=== PATIENT | male | born 1950 | race Caucasian/White ===

== ENCOUNTER → 2022-12-02 17:34 | Outpatient (CLI) | payer MEDICARE, SELFPAY ==
--- NOTE | ~2022-12-02 | XR_ITS ---
EXAMINATION: XR chest 2V Exam Date/Time: 12/02/2022 17:45 CDT HISTORY: Bronchitis Comparison: None. RESULT: Lines, tubes, and devices: None. Lungs and pleura: Hemidiaphragm flattening. Mild scattered reticulonodular opacities. Cardiomediastinal silhouette: Stable. Other: No acute osseous or upper abdominal finding. IMPRESSION: Pulmonary opacities may represent respiratory bronchiolitis in the appropriate clinical context. Mild emphysematous change. Reviewed, dictated and finalized at location K.
== END ==
PROVIDERS: PCP Family Medicine; Visit Provider Family Medicine
DX: J40 Bronchitis, not specified as acute or chronic (principal); R91.8 Other nonspecific abnormal finding of lung field
CPT/HCPCS: 71046

== ENCOUNTER 2023-06-30 15:18 | Outpatient (CLI) | payer MEDICARE, SELFPAY ==
[2023-07-05 18:36] LABS: PSA, Free 0.36 ng/mL; PSA, Total 1.5 ng/mL (<=4.0)
== END 2023-06-30 15:19 | disposition home or self-care (01) ==
LOC: ANHLAB 15:25
PROVIDERS: PCP Family Medicine
DX: R97.20 Elevated prostate specific antigen [PSA] (principal)
CPT/HCPCS: 36415; 84153; 84154

== ENCOUNTER 2023-08-24 08:30 | Outpatient (RCR) | payer MEDICARE, SELFPAY ==
[2023-05-20 12:16] VITALS: PULSE 77
== END 2023-08-24 17:00 | disposition home or self-care (01) ==
LOC: ANHCPREHAB 08:30
PROVIDERS: PCP Family Medicine; Visit Provider Internal Medicine Cardiovascular Disease
DX: Z95.2 Presence of prosthetic heart valve (principal)
CPT/HCPCS: 36415; 84153; 84154; 93798

== ENCOUNTER 2023-09-16 06:59 | Outpatient (CLI) | payer MEDICARE, SELFPAY ==
[2023-09-16 08:07] LABS: Basophils Percent Auto 0.6 % (0.2-1.2); Eosinophils Absolute Auto 0.2 K/mm3 (0-0.3); Eosinophils Percent Auto 2.2 % (0-4.4); Hematocrit 46.5 % (42.0-52.0); Hemoglobin 15.3 g/dL (14.0-18.0); Immature Granulocyte Absolute 0.03 K/mm3 (0.00-0.031); Immature Granulocyte Percent A 0.4 % (0-0.5); Lymphocytes Absolute Auto 1.81 K/mm3 (0.9-3.2); Lymphocytes Percent Auto 26.7 % (18.3-44.2); Mean Corpuscular HGB Conc 32.9 g/dl (32-36); Mean Corpuscular Hemoglobin 30.2 pg (26-34); Mean Corpuscular Volume 91.9 fl (80-100); Mean Platelet Volume 10.5 fl (7.4-10.4); Monocytes Absolute Auto 0.6 K/mm3 (0.1-0.6); Neutrophils Absolute Auto 4.1 K/mm3 (1.3-6.7); Neutrophils Percent Auto 61.1 % (45.5-73.1); Platelet Count Result 230 k/mm3 (150-375); Red Blood Count 5.06 M/mm3 (4.6-6.20); Red Cell Distribution Width 13.8 % (11.5-14.5); White Blood Count 6.8 K/mm3 (4.5-10.0)
== END 2023-09-16 07:00 | disposition home or self-care (01) ==
LOC: ANHLAB 07:03
PROVIDERS: PCP Family Medicine; Visit Provider Internal Medicine Cardiovascular Disease
DX: E78.5 Hyperlipidemia, unspecified (principal); I48.0 Paroxysmal atrial fibrillation; Z79.01 Long term (current) use of anticoagulants; Z82.49 Family history of ischemic heart disease and other diseases of the circulatory system; Z95.3 Presence of xenogenic heart valve; Z95.828 Presence of other vascular implants and grafts
CPT/HCPCS: 36415; 85025

== ENCOUNTER 2023-12-02 11:43 | Outpatient (CLI) | payer MEDICARE, SELFPAY ==
--- NOTE | 2023-12-02 | ECG_ITS ---
Test Date: 2023-12-02 11:59:40 Measurements Intervals [place] Rate: 61 P: 38 WI: 156 QRS: 48 QRSD: 97 T: 68 QT: 414 QTc: 417 Interpretive Statements SINUS RHYTHM No previous ECG available for comparison Electronically Signed On 12-03-2023 15:50:24 CDT by Fuad Fulton M.D.
== END 2023-12-02 11:44 | disposition home or self-care (01) ==
LOC: ANHLAB 11:46
PROVIDERS: PCP Family Medicine; Visit Provider Family Medicine
DX: Z01.818 Encounter for other preprocedural examination (principal)
CPT/HCPCS: 93005

== ENCOUNTER 2024-01-09 10:34 | Outpatient (CLI) | payer MEDICARE, SELFPAY ==
--- NOTE | ~2024-01-09 | XR_ITS ---
XR abdomen/kub 1V 01/09/2024 11:05 INDICATION: History of kidney stones TECHNIQUE: KUB COMPARISON: None FINDINGS: Bowel gas pattern is normal. There is no evidence of free air, mass, organomegaly, ascites or obstruction. There are left renal stones. The bones appear intact. There are pelvic phleboliths. IMPRESSION: 1: Left nephrolithiasis. Reviewed, dictated and finalized at location B. IMPRESSION: 1: Left nephrolithiasis.
[2024-01-09 11:36] LABS: Prostate Specific Antigen 1.5 ng/mL (< OR = 4.0)
== END 2024-01-09 10:35 | disposition home or self-care (01) ==
PROVIDERS: PCP Family Medicine
DX: N40.0 Benign prostatic hyperplasia without lower urinary tract symptoms (principal); R39.12 Poor urinary stream; N20.0 Calculus of kidney
CPT/HCPCS: 36415; 74018; 84153

== ENCOUNTER 2024-08-07 14:29 | Outpatient (CLI) | payer MEDICARE, SELFPAY ==
--- OUTSIDE RECORDS SUMMARY | 2024-08-07 14:42 | XMS_ITS | Clinical Summary ---
Author Organization [facility] Address [address] [place] [address] Care Team Providers Care Spinning Supervisor Name Role Phone Brent Moreno MD Primary Care Provider +1- [phone] Source Comments [facility],non-owned Affiliates and Associated Physician Practices is amultiple site organization consisting of ambulatory clinics and hospital sitesin [place], [place], [place] and [place]. This disclosure is being madepursuant to the Care Everywhere program and may not contain all information available regarding this patient. Last updated 18.[facility] [employer] Social History Tobacco Use Types Packs/Day Years Used Date Smoking Tobacco: Never Assessed Sex and Gender Information Value Date Recorded Sex Assigned at Not on file Gender Identity Not on file Sexual Orientation Not on file Plan of Treatment Health Maintenance Due Date Last Done Comments COLOGUARD (AGES 45-75) - COL ON CA SCREENING 1950 COLON MONITORING 1950 COLONOSCOPY - COLON CA SCREENING 1949 CT COLONOGRAPHY - COLON CA SCREENING 1950 Colorectal Cancer Screening 1950 FIT - COLON CA SCREENING 1949 FLEX SIG - COLON CA SCREENING 1949 LIPID TESTING 1950 MEDICARE AWV 12 MONTHS 1950 HEPATITIS C SCREENING 01/12/1967 DTAP/TDAP/TD VACCINES (1 - Tdap) 01/17/1968 PNEUMOCOCCAL VACCINE 50+ (1 of 1 - PCV) 1999 ZOSTER VACCINE (1 of 2) 1999 Respiratory Syncytial Virus (RSV) Vaccine Pt: or over 60 yrs (1 - 1-dose 75+ series) 01/17/2024 COVID-19 VACCINE ( - 2023-2 5 season) 2024 INFLUENZA VACCINE (#1) 2024 DEPRESSION SCREENING 06/20/2024 HEPATITIS B VACCINE Aged Out No longe r eligible based on patient's age to complete this topic HIB VACCINE Aged Out No longer eligi ble based on patient's age to complete this topic HPV VACCINE Aged Out No longer eligi ble based on patient's age to complete this topic MENINGOCOCCAL (Group B) VACCINE Aged Out No longer eligible based on patient's age to complete this topic MENINGOCOCCAL VACCINE Aged Out No vanessa feliciano eligible based on patient's age to complete this topic Care Teams Spinning Supervisor Relationship Specialty Start Date End Date Brent Moreno MD [address] [facility], [id number] PCP - General 11/11/20
--- OUTSIDE RECORDS SUMMARY | 2024-08-07 14:42 | XMS_ITS | Referral Summary ---
Author Organization [facility] Address [address] [place] [address] Care Team Providers Care Head Bander And Liner Operator Name Role Phone Brent Moreno MD Primary Care Provider +1- [phone] Source Comments [facility],non-owned Affiliates and Associated Physician Practices is amultiple site organization consisting of ambulatory clinics and hospital sitesin [place], [place], [place] and [place]. This disclosure is being madepursuant to the Care Everywhere program and may not contain all information available regarding this patient. Last updated 18.[facility] [employer] Social History Tobacco Use Types Packs/Day Years Used Date Smoking Tobacco: Never Assessed Sex and Gender Information Value Date Recorded Sex Assigned at Not on file Gender Identity Not on file Sexual Orientation Not on file Plan of Treatment Not on file Care Teams Head Bander And Liner Operator Relationship Specialty Start Date End Date Brent Moreno MD [address] [facility], [id number] PCP - General 11/11/20
--- OUTSIDE RECORDS SUMMARY | 2024-08-07 14:42 | XMS_ITS | Clinical Summary ---
Author Organization [address] Address [address] [place] [id number] Care Team Providers Care Senior Product Marketing Manager Name Role Phone Brent Moreno MD Primary Care Provider +1- [phone] Allergies Active Allergy Reactions Criticality Noted Date Comments Amoxicillin Other (See comments) Low 01/24/2024 Amoxicillin-Pot Clavulanate Other (See comments) Medium 01/10/2024 Krvtrop-Tnp-Iag Reductase Inhibitors Mental status changes Low 01/24/2024 Medications PREVIDENT 5000 BOOSTER PLUS 1.1 % paste USE DAILY AT BEDTIME. SPIT BUT DO NOT RINSE WITH WATER AFTERWARDS 3 8 Active coenzyme Q10 100 mg capsule Take 1 capsule (100 mg total) by mouth daily Active amiodarone (PACERONE) 200 mg tablet Take 1 tablet (200 mg total) by mouth daily 4 Active Eliquis 5 mg tablet Take 1 tablet (5 mg total) by mouth 2 (two) times a day 4 Active cyanocobalamin (Vitamin B-12) 1,000 mcg tablet Take 1 tablet (1,000 mcg total) by mouth daily 9 Active cholecalciferol (VITAMIN D-3) 5,000 unit capsule Take 1 capsule (5,000 Units total) by mouth daily 9 Active Active Problems Problem Noted Date Diagnosed Date Hemorrhoids, complicated 01/10/2024 Anal discharge 01/10/2024 Grade III hemorrhoids 04/25/2018 Rectal bleeding 04/25/2018 Surgical History Surgery Date Site/Laterality Comments COLONOSCOPY 2012 INGUINAL HERNIA REPAIR LITHOTRIPSY Medical History Medical History Date Comments Kidney stone lithotrypsy Social History Tobacco Use Types Packs/Day Years Used Date Smoking Tobacco: Never Passive Smoke Exposure: Never Smokeless Tobacco: Never Tobacco Cessation:Counseling Given: Not Answered Alcohol Use Standard Drinks/Week Comments Yes 0 (1 standard drink = 0.6 oz pur e alcohol) social AUDIT-C Answer Date Recorded Q1: How often do you have a drink containing alc ohol? 2-3 times a week 01/10/2024 Q2: How many drinks containi ng alcohol do you have on a typical day when you are drinking? 1 or 2 01/10/2024 Frequency of Binge Drinking Not on file 12/19 Personal Safety Answer Date Recorded Getting School Help Needed Not on file 08/19 Sex and Gender Information Value Date Recorded Sex Assigned at Not on file Legal Sex Male 3:00 PM CDT Gender Identity Not on file Sexual Orientation Not on file Obstetrics History Last Filed Vital Signs Vital Sign Reading Time Taken Comments Blood Pressure 135/78 01/24/2024 9:45 AM CDT Pulse 93 01/24/2024 9:45 AM CDT Temperature 36.9 C (98.5 F) 01/24/2024 9:45 AM CDT Respiratory Rate 18 05/19/2018 11:2 5 AM PRODUCTION TEAM MEMBER Oxygen Saturation 96% 01/10/2024 3:52 PM CDT Inhaled Oxygen Concentration - - Weight 89.7 kg (197 lb 12.8 oz) 01/24/2024 9:45 AM CDT Height 177.8 cm (5' 10 ) 01/24/2024 9:45 AM CDT Body Mass Index 28.38 01/24/2024 9:45 AM CDT Plan of Treatment Health Maintenance Due Date Last Done Comments Depression Screening 1950 Fall Risk Assessment 1950 Hepatitis C Screening 1950 DTaP/Tdap/Td Vaccine (1 - Tdap) 01/17/1960 Hepatitis B Screening 1967 Pneumococcal vaccine 65+ (1 of 1 - PCV) 1999 Zoster Vaccine (1 of 2) 1999 Well Visit 65+ 2014 Covid-19 Vaccine (6 - 2023-2 5 season) 2024 05/06/2022, 01/29/2022, 06/05/2021, Additional history exists Influenza Vaccine (#1) 2024 06/03/2022 Colon Cancer Screening-Colonoscopy 05/19/2028 05/19/2018 Colon Cancer Screening-CT Colonography Discontinued 05/19/2018 Colon Cancer Screening-DNA Stool Discontinued 05/19/20 18 Colon Cancer Screening-FIT Discontinued 05/19/2018 Colon Cancer Screening-Sigmoidoscopy Discontinued 05/19/2018 Procedures Procedure Name Priority Date/Time Associated Diagnosis Comments COLONOSCOPY 05/19/2018 7:28 AM PRODUCTION TEAM MEMBER from Last 3 Months or Most Recently Relevant to Health Maintenance Results * COLONOSCOPY (05/19/2018 7:28 AM PRODUCTION TEAM MEMBER) Anatomical Region Laterality Modality Other Narrative Procedure Note Stuart Oro MD - 05/19/2018 7:28 AM CST ENDOSCOPY LAB Patient Name: Chapincito Johnson Procedure Date: 05/19/2018 7:28 AM Admit Type: Outpatient Room: [facility] Date of : 1950 Instrument Name: [id number] Gender: Male Note Status: Finalized Procedure: Colonoscopy Indications: High risk colon cancer surveillance: Personal historyof colonic polyps, Last colonoscopy 5 years ago Comorbidities No comorbidities Providers: Stuart Oro MD Referring MD: Brent Moreno MD Medicines: See the Anesthesia note for documentation of the administered medications Complications: No immediate complications. Estimated blood loss:None. Estimated Blood Loss: Estimated blood loss: none. Procedure: Pre-Anesthesia Assessment: - Prior to the procedure, a History and Physical was performed, and patient medications, allergies and sensitivities were reviewed. The patient's tolerance of previous anesthesia was reviewed. - The risks and benefits of the procedure and thesedation options and risks were discussed with the patient. All questions were answered and informed consent wasobtained. The benefits, risks and alternatives of the procedureand sedation were discussed and informed consent wasobtained. All questions were answered. Please refer to the signed informed consent document in the medical record. Thescope was passed under direct vision. The Colonoscope was introduced through the anus and advanced to the the terminal ileum, with identification of the appendiceal orifice and IC valve. The quality of the bowelpreparation was evaluated using the BBPS ([facility] Bowel Preparation Scale) with scores of: Right Colon = 3 (entire mucosaseen well with no residual staining, small fragments ofstool or opaque liquid), Transverse Colon = 2 (minor amountof residual staining, small fragments of stool and/oropaque liquid, but mucosa seen well) and Left Colon = 2 (minor amount of residual staining, small fragments of stool and/or opaque liquid, but mucosa seen well). The total BBPS score equals 7. The quality of the bowelpreparation was excellent. The bowel preparation used was SUPREP. Bowel prep was administered using a split dose. Findings: The digital rectal exam was normal. Pertinent negatives include no palpable rectal lesions. A few diverticula were found in the sigmoid colon. The exam was otherwise without abnormality on direct and retroflexion views. Impression: - Diverticulosis in the sigmoid colon. - The examination was otherwise normal on direct and retroflexion views. - No specimens collected. - Hemorrhoids. Recommendation: - Repeat colonoscopy in 5-10 years for surveillance. Electronically signed by Stuart Oro M.D. Stuart Oro MD 05/19/2018 10:14:07 AM Number of Addenda: 0 Note Initiated On: 05/19/2018 7:28 AM Stuart Oro MD ENDOSCOPY PROCEDURES Fin al Result from Last 3 Months or Most Recently Relevant to Health Maintenance Insurance MEDICARE [employer] MEDICARE [employer] Advance Directives For more information, please contact: [phone] * Full Code (Latest Code Status on File) Date Activated Date Inactivated Comments 05/19/2018 8:53 AM 05/19/2018 1:46 PM Care Teams Senior Product Marketing Manager Relationship Specialty Start Date End Date Brent Moreno MD [address] [place] [address] PCP - General Family Medicine 04/07/18
--- OUTSIDE RECORDS SUMMARY | 2024-08-07 14:42 | XMS_ITS | Encounter Summary ---
Author Organization [facility] Address [address] [facility] [place] [address] Care Team Providers Care Pasteurizer Name Role Phone Brent Moreno MD Primary Care Provider +1- [phone] Encounter Details Date Type Department Care Team (Late st Contact Info) Description 04/26/2022 Lab Requisition [facility] Derm[facility] Lab [address] [place] [address] Polo Acosta MD [address] [place] [id number] Social History Tobacco Use Types Packs/Day Years Used Date Smoking Tobacco: Never Assessed Sex and Gender Information Value Date Recorded Sex Assigned at Not on file Gender Identity Not on file Sexual Orientation Not on file documented as of this encounter Plan of Treatment Not on file documented as of this encounter Procedures Procedure Name Priority Date/Time Associated Diagnosis Comments DERMATOPATHOLOGY Routine 04/21/2022 12:0 0 AM CDT documented in this encounter Results * DERMATOPATHOLOGY (04/21/2022 12:00 AM CDT) Case Report Dermatopathology Report Case: [id number] Authorizing Provider: Polo Acosta MD Collected: 04/21/2022 12:00 AM Ordering Location: [facility] Received: 04/26/2022 11:26 AM Pathologist: Marcella Gonzalez MD Specimen: Skin, back 4:09 PM [facility] DERMATOPATHOLOGY [facility]ORAT[facility] Final Diagnosis Specimen A. 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 The specimen consists of a shave biopsy measuring 56c40w5 mm. Jar 0. 2 4:09 PM [facility] DERMATOPATHOLOGY [facility]OR[facility]ORY Microscopic Description Specimen A. SKIN, back: Sections show an acanthotic lesion composed of relatively uniform keratinocytes. There is hyperkeratosis and pseudo horn cysts. Pigment is present in the keratinocytes composing this tumor. 2 4:09 PM [facility] DERMATOPATHOLOGY [facility]OR[facility]ORY Disclaimer An external and internal positive and negative controls are appropriate for the histochemical, immunohistochemical and immunofluorescence stain(s) in this case (if any), except where stated explicitly. The performance characteristics of the stain(s) cited in this report were developed and its performance characteristic determined by the Dermatopathology Laboratory at [facility], directed by Dr. Margaret Gonzalez. These tests need not be, and therefore are not, approved by the [place] Food and Drug Administration. The tests are used for clinical purposes. Billing Codes Specimen Charges Stain Charges 99106 1 2 4:09 PM [facility] DERMATOPATHOLOGY [facility] Embedded Images 2 4:09 PM [facility] DERMATOPATHOLOGY [facility]ORY Pathology/Cytolog y TISSUE SPECIMEN FROM SKIN / Unknown 04/21/2022 04/26/2022 11:26 AM ACADEMIC PHYSICIAN Polo Acosta MD LAB - PATHOLOGY/CYTO LOGY ORDERABLES DERMATOPATHOLOGY LABORATORY [facility] - Department of Dermatology [facility] Medicine [facility] [facility] [place], [place] [id number] [place] [address] documented in this encounter Visit Diagnoses Not on filedocumented in this encounter Care Teams Pasteurizer Relationship Specialty Start Date End Date Brent Moreno MD [address] [facility], [id number] PCP - General 11/11/20 documented as of this encounter
--- OUTSIDE RECORDS SUMMARY | 2024-08-07 14:42 | XMS_ITS | Patient Health Summary ---
Author Organization [facility] Address [address] [facility] [place] [address] Care Team Providers Care Screen Tacker Name Role Phone Brent Moreno MD Primary Care Provider +1- [phone] Note from [facility],non-owned Affiliates and Associated Physician Practices is amultiple site organization consisting of ambulatory clinics and hospital sitesin [place], [place], [place] and [place]. This disclosure is being madepursuant to the Care Everywhere program and may not contain all information available regarding this patient. Last updated 18.[facility] Social History Tobacco Use Types Packs/Day Years Used Date Smoking Tobacco: Never Assessed Sex and Gender Information Value Date Recorded Sex Assigned at Not on file Gender Identity Not on file Sexual Orientation Not on file Procedures * DERMATOPATHOLOGY(Performed 04/21/2022) * ECHO COMPLETE(Performed 11/11/2020) Performed for Aortic valve stenosis, etiology of cardiac valve disease unspecified * DERMATOPATHOLOGY(Performed 08/15/2019) * DERMATOPATHOLOGY(Performed 02/27/2018) Results * DERMATOPATHOLOGY (04/21/2022 12:00 AM CDT) Only the most recent of3 resultswithin the time period is included. Case Report Dermatopathology Report Case: [id number] Authorizing Provider: Polo Acosta MD Collected: 04/21/2022 12:00 AM Ordering Location: [facility] D[facility] Lab Received: 04/26/2022 11:26 AM Pathologist: Marcella Gonzalez MD Specimen: Skin, back 4:09 PM [facility] Final Diagnosis Specimen A. SKIN, back: PIGMENTED SEBORRHEIC KERATOSIS, INFLAMED (L82.1) 2 4:09 PM [facility] Clinical History SK nevus R/O melanoma 2 4:09 PM [facility] Gross Description Specimen A: Received is one formalin filled container labeled with the patient's name and designated back. The specimen consists of a shave biopsy measuring 21v40t7 mm. Jar 0. 2 4:09 PM [facility] Microscopic Description Specimen A. SKIN, back: Sections show an acanthotic lesion composed of relatively uniform keratinocytes. There is hyperkeratosis and pseudo horn cysts. Pigment is present in the keratinocytes composing this tumor. 2 4:09 PM [facility] Disclaimer An external and internal positive and negative controls are appropriate for the histochemical, immunohistochemical and immunofluorescence stain(s) in this case (if any), except where stated explicitly. The performance characteristics of the stain(s) cited in this report were developed and its performance characteristic determined by the Dermatopathology Laboratory at [facility], directed by Dr. Margaret Gonzalez. These tests need not be, and therefore are not, approved by the [place] Food and Drug Administration. The tests are used for clinical purposes. Billing Codes Specimen Charges Stain Charges 37247 1 2 4:09 PM [facility] Embedded Images 2 4:09 PM [facility] Pathology/Cytolog y TISSUE SPECIMEN FROM SKIN / Unknown 04/21/2022 04/26/2022 11:26 AM SCALER Polo Acosta MD LAB - PATHOLOGY/CYTO LOGY ORDERABLES DERMATOPATHOLOGY LABORATORY [facility] - Department of Dermatology [address] [phone] * ECHO COMPLETE (11/11/2020 3:54 PM CDT) Anatomical Region Laterality Modality Chest Echo 11/11/2020 2:52 PM CDT Narrative Procedure Note Bessie Ross MD - 11/12/2020 Jaguar Edwards MD ECHOCARDIOGRAPHY RAD IANT Care Teams Screen Tacker Relationship Specialty Start Date End Date Brent Moreno MD [address] [facility], [id number] PCP - General 11/11/20
--- OUTSIDE RECORDS SUMMARY | 2024-08-07 14:42 | XMS_ITS | Data Portability ---
Author Organization [facility] Marks SI (11) Address [address] [facility] [address] [place] [address] Care Team Providers Care Neck Band Operator Name Role Phone FERNANDO MONTIEL Referring Provider [phone] Assessment Encounter Date Assessment Date Assessment LastModified by Organization Details LastModified Time 06/03/2016 06/03/2016 Patient is compliant with CPAP and he feels better. But his humidifier is not working now well and his mission is more than six years old. I will order and APAP with the pressure range of 6 to 10 since he has gained some weight. [email or web address] Not available 06/03/2016 12:22:01 Plan of Treatment Reminders Order Date Submit Date Provider Last Modified By Organization Details Last Modified Time Details Appointments None record ed. Lab None record ed. Referral None record ed. Procedures None record ed. Surgeries None record ed. Imaging None record ed. Medication Orders None record ed. Patient TargetsNo targets recorded. Patient InstructionsNo instructions recorded. Reason for Referral None Reported. Problems Name Problem SNOMED Code Status Onset Date Resolution Date Notes Provider Name and Address Organization Details Recorded Time Obstructive sleep apnea syndrome 44207876 Active 016 KING MARCOS MD, JAI, F.C.C.P. NPI [id number],[facility], [place], [address] [place] [address]/[facility] 6 12:05:18 Problem Notes None recorded. Procedures Surgical History Date Name Laterality Status Provider Name and Address Organization Details Recorded Time Fragmenting of kidney stone completed KING MARCOS MD, JAI, F.C.C.P. [address],[facility], [place], [address], [facility] 06/03/2016 12:08:05 Imaging Results None recorded. Procedure Notes None recorded. Medical Equipment None Reported. Allergies No known drug allergies Medications Name Sig Start Date Stop Date Status Note LastModified by Organization Details LastModified Time ciprofloxacin 0.3 % eye drops active Not Available Not Availa ble Not Available amoxicillin 875 mg-potassium clavulanate 125 mg tablet active Not Available Not Available No t Available Vitals Date Recorded Body height Body weight Body mass index (BMI) Oxygen saturation Oxygen saturation in Arterial blood by Pulse oximetry Heart rate Respiratory rate Systolic blood pressure Diastolic blood pressure Provider Name and Address Organization Details Last Updated DateTime 6 177.8 cm 05588.5 5 g 27.3 kg/m2 96 % 96 % 60 /min 16 /min 110 mm[Hg] 70 mm[Hg] KING MARCOS MD, DAB, F.C.C.P. I [id number] [phone] [facility] [place], [address], [facility] 6 12:20:06 Social History Question Answer Notes LastModified by Organizat ion Details LastModified Time Tobacco Smoking Status Never Smoker Not Available [facility] 04/04/2020 03:17:41 What Is Your Level Of Alcohol Consumption? Occasional [id number] Information not available 04/04/2020 What Is Your Level Of Caffeine Consumption? Moderate [id number] Information not available 04/04/2020 Marital Status mohit Campos n not available 06/03/2016 How Many Children Do You Have? 1 [id number] Information not available 04/04/2020 Sex: Unknown Functional Status None recorded. Mental Status None recorded. Family History Nothing Reported. Medical History Condition Response Gout N Emphysema N Congenital Heart Disease N COPD N Depression N Pneumonia N Lung Mass N Sinusitis N Obesity N Arthritis N Blood Clot N Acid Reflux (GERD) N Cancer N Stroke N Hospital Admission other than N Hypercholesterolemia N Kidney Disease N Anxiety N NSAID Use N Difficulty swallowing N Tuberculosis N AIDS/HIV N Nasal polyps N Asthma N Parasomnias N Hepatitis N Pulmonary Embolism N Thyroid Disease N Meniere's disease N Cystic Fibrosis N Chronic ear infections N Liver Disease N Allergies/Hayfever N Anemia N Multiple Sclerosis N Mental Illness N Diabetes N Seizures/Epilepsy N Diverticulitis N Sleep Apnea Y Bronchitis N Heart Disease N Hypertension N Osteoporosis N Past Encounters Encounter ID Performer Location Encounter Start Date Encounter Closed Date Diagnosis/Indication Diagnosis SNOMED-CT Code Diagnosis ICD10 Code Diagnosis Note [id number] KING MARCOS MD, Marilin VERGARAC.C.P. [facility] [address] [address] 06/03/2016 11:34:24 06/03/2016 13:20:26 Obstructive sleep apnea of adult 3831443511 103 G47.33 Health Concerns Section Related Observation LastModified by Organization Detai ls LastModified Time None Recorded Concern Status LastModified by Organization Details LastModified Time None Recorded Advance Directives Directive None Recorded Payers Encounter Date Sequence Insurance Name Policy Number Policy Larson Covered Member ID Larson Member ID Guarantor Name 06/03/2016 2 [employer] [place] Johnson [id number] [place] Johnson 06/03/2016 1 [place] Johnson [id number] [place] Johnson Notes Date Note Type Note Provider Name and Address Organization Details Recorded Time 06/03/2016 text/html CPAP f/upReporte d [email or web address].CPAPThe patient reports feeling better with CPAP; The patient reports no new medical problems.; No surgeries or hospitalizations reported since last visit.; The patient does not notice mask leaking.; Snoring is not observed when CPAP is used. KING MARCOS MD, Rupert VERGARA.C.C.P. [address] [address], [place], [address], [facility] 06/03/2016 12:22:20
--- OUTSIDE RECORDS SUMMARY | 2024-08-07 14:42 | XMS_ITS | Clinical Summary ---
Author Organization [facility] [address] [facility] Address [address] [place] [address] Care Team Providers Care Product Safety Administrator Name Role Phone Brent Moreno MD Primary Care Provider [phone]- [phone] Social History Tobacco Use Types Packs/Day Years Used Date Smoking Tobacco: Never Assessed Sex and Gender Information Value Date Recorded Sex Assigned at Not on file Legal Sex Male 5:48 PM CDT Gender Identity Not on file Sexual Orientation Not on file Plan of Treatment Health Maintenance Due Date Last Done Comments DTAP/TDAP/TD VACCINES (1 - Tdap) 01/17/1968 COLORECTAL SCREENING 1994 Colorectal Cancer Screening 1994 FIT-DNA Q 3 years 1994 FIT/FOBT Q 1 year 1994 Flex Sig/CT Colonography Q 5 years 1994 PNEUMOCOCCAL VACCINE 65+ YEARS (1 of 1 - PCV) 01/16/19 99 ZOSTER VACCINE (1 of 2) 1999 RSV VACCINE (60+ or ) (1 - 1-dose 75+ series) 01/17/2024 INFLUENZA VACCINE (#1) 2024 Insurance [id number] [id number] MEDICARE PART A AND B Care Teams Product Safety Administrator Relationship Specialty Start Date End Date Brent Moreno MD [address] [place] [address] PCP - General Family Practice 09/19/18
--- OUTSIDE RECORDS SUMMARY | 2024-08-07 14:42 | XMS_ITS | Data Portability ---
Author Organization [facility], Main Office Address [address] [facility] [address] [place] [address] Assessment No assessment recorded. Plan of Treatment Reminders Order Date Submit Date Provider Last Modified By Organization Details Last Modified Time Details Appointments ESTABLISH ED PATIENT 30 2024 10:00A M Dr. Acosta Not available Not available Not available Lab None recorded. Referral None recorded. Procedures biopsy, skin (PROC) 2019 020 [email or web address] Not available 08/15/2019 10:04:20 Surgeries None recorded. Imaging None recorded. Medication Orders None recorded. Patient TargetsNo targets recorded. Patient InstructionsNo instructions recorded. Reason for Referral None Reported. Results Created Date Observation Date Name Description Value Unit Range Abnormal Flag Note LastModifiedBy Organization Detail LastModifiedTime Result Notes None recorded. Problems Name Problem SNOMED Code Status Onset Date Resolution Date Notes Provider Name and Address Organization Details Recorded Time Seborrheic keratosis 541335444 Active 2021 Polo Acosta MD [address] [facility] [address], [place], [address], [facility] 2 13:31:45 Chronic effect of ultraviolet radiation on normal skin 245884162 Active 2021 Polo Acosta MD [address] [facility] [address], [place], [address], [facility] 2 13:32:01 Tinea corporis 85824902 Active 2023 Polo Acosta MD [address] [facility] [address], [place], [address], [facility] 4 15:44:26 Melanocytic nevus of trunk 426591419 Active 2023 Polo Acosta MD [address] [facility] [address], [place], [address], [facility] 4 15:25:59 Multiple actinic keratoses 027774979 Active 2023 Polo Acosta MD [address] [facility] [address], [place], [address], [facility] 4 15:26:05 Neoplasm of uncertain behavior of skin 24425329 Active 2019 Polo [facility]osta MD [address] [facility] [address] [place], [address], [facility] 0 10:04:09 Problem Notes None recorded. Procedures Surgical History Date Name Laterality Status Provider Name and Address Organization Details Recorded Time 08/15/2019 Shave Biopsy completed Polo Acosta MD [address] [facility] [address] [place], [address], [facility] 08/15/2019 10:03:44 Imaging Results None recorded. Procedure Notes None recorded. Medical Equipment None Reported. Allergies No known drug allergies Medications Name Sig Start Date Stop Date Status Note LastModified by Organization Details LastModified Time amoxicillin 500 mg capsule 07/12 completed Not Available Not Available Not Available doxycycline hyclate 100 mg capsule TAKE 1 CAPSULE BY MOUTH TWICE A DAY FOR 10 DAYS active Not Available Not Available No t Available clindamycin HCl 300 mg capsule active Not Available Not Available Not Available azithromyci n 250 mg tablet TAKE 2 TABLETS BY MOUTH TODAY, THEN TAKE 1 TABLET DAILY FOR 4 DAYS active Not Available Not Available No t Available amiodarone 200 mg tablet 07/12 completed Not Available Not Available Not Available prednisone 20 mg tablet TAKE 2 TABLETS BY MOUTH EVERY DAY X4 DAYS WITH FOOD *NO OTHER NSAIDS(AL MAYRA, IBUPROFEN ) 07/12 completed Not Available Not Available Not Available potassium chloride ER 10 mEq tablet,exte nded release active Not Available Not Available Not Available omeprazole 40 mg capsule,del ayed release TAKE 1 CAPSULE BY MOUTH EVERY DAY 30 MIN BEFORE BREAKFAST active Not Available Not Available No t Available tramadol 50 mg tablet 07/12 completed Not Available Not Available Not Available pantoprazol e 20 mg tablet,margarita yed release TAKE 1 TABLET BY MOUTH EVERY DAY 07/12 completed Not Available Not Available Not Available ketorolac 0.5 % eye drops active Not Available Not Available Not Available oxycodone-a cetaminophe n 5 mg-325 mg tablet 07/11 completed Not Available Not Available Not Available famotidine 20 mg tablet active Not Available Not Available Not Available prednisolon e acetate 1 % eye drops,suspe nsion active Not Available Not Available Not Available tamsulosin 0.4 mg capsule active Not Available Not Available Not Available benzonatate 100 mg capsule TAKE 1 CAPSULE BY MOUTH THREE TIMES A DAY FOR 10 DAYS active Not Available Not Available No t Available econazole nitrate 1 % topical cream APPLY TO THE AFFECTED AND SURROUNDI NG AREAS of the leg 2 TIMES PER DAY 2023 active Not Available Not Available Not Avai lable cephalexin 500 mg capsule TAKE 1 CAPSULE BY MOUTH FOUR TIMES A DAY FOR 10 DAYS active Not Available Not Available No t Available ibuprofen 400 mg tablet active Not Available Not Available Not Available codeine 10 mg-guaifene sin 100 mg/5 mL oral liquid TAKE 10 ML BY MOUTH EVERY 4 HOURS active Not Available Not Available No t Available pravastatin 20 mg tablet active Not Available Not Available Not Available furosemide 20 mg tablet 07/12 completed Not Available Not Available Not Available metoprolol succinate ER 25 mg tablet,exte nded release 24 hr TAKE 1 TABLET BY MOUTH EVERY DAY active Not Available Not Available No t Available albuterol sulfate HFA 90 mcg/actuati on aerosol inhaler INHALE 2 PUFFS BY MOUTH EVERY 4 HOURS NEEDED active Not Available Not Available No t Available ipratropium bromide 42 mcg (0.06 %) nasal spray active Not Available Not Available Not Available ketoconazol e 2 % topical cream APPLY TO THE AFFECTED AREA(S) BY TOPICAL ROUTE ONCE DAILY for 3 weeks 2023 active Not Available Not Available Not Avai lable ondansetron 4 mg disintegrat ing tablet 07/12 completed Not Available Not Available Not Available cefdinir 300 mg capsule TAKE 1 CAPSULE BY MOUTH EVERY 12 HOURS active Not Available Not Available No t Available amoxicillin 875 mg-potassiu m clavulanate 125 mg tablet 07/12 completed Not Available Not Available Not Available chlorhexidi ne gluconate 0.12 % mouthwash active Not Available Not Available No t Available Suprep Bowel Prep Kit 17.5 gram-3.13 gram-1.6 gram oral solution active Not Available Not Available Not Available PreviDent 5000 Booster Plus 1.1 % dental paste active Not Available Not Available Not Available Eliquis 5 mg tablet 07/12 completed Not Available Not Available Not Available Paxlovid 300 mg (150 mg x 2)-100 mg tablets in a dose pack TAKE 1 DOSE PACK BY ORAL ROUTE PER PACKAGE DIRECTION S active Not Available Not Available No t Available Vitals None Recorded Social History None recorded. Functional Status None recorded. Mental Status None recorded. Family History Nothing Reported. Medical History No medical history recorded. Past Encounters Encounter ID Performer Location Encounter Start Date Encounter Closed Date Diagnosis/Indication Diagnosis SNOMED-CT Code Diagnosis ICD10 Code Diagnosis Note [id number] Polo Acosta MD Main Office [address] [place] [address] [place] [address] 08/15/2019 09:37:26 08/15/2019 10:04:39 Neoplasm of uncertain behavior of skin 85966440 D48.5 Health Concerns Section Related Observation LastModified by Organization Detai ls LastModified Time None Recorded Concern Status LastModified by Organization Details LastModified Time None Recorded Advance Directives Directive None Recorded Payers Encounter Date Sequence Insurance Name Policy Number Policy Larson Covered Member ID Larson Member ID Guarantor Name 08/15/2019 2 [employer] (MEDICARE SUPPLEMENT) [place] Johnson [id number] Chap[place] Johnson 08/15/2019 1 [place] Johnson [id number] [place] Johnson Notes Date Note Type Note Provider Name and Address Organization Details Recorded Time 08/15/2019 text/html Bx, mid upper abd lesion. See prev. Polo Acosta MD [address], [place], [address], [facility] [place] [facility] 08/15/2019 10:04:27
--- OUTSIDE RECORDS SUMMARY | 2024-08-07 14:42 | XMS_ITS | Encounter Summary ---
Author Organization [facility] Address [address] [facility] [place] [address] Care Team Providers Care Construction Project Mgr Name Role Phone Brent Moreno MD Primary Care Provider [phone]- [phone] Encounter Details Date Type Department Care Team (Late st Contact Info) Description 08/21/2019 Lab Requisition [facility] [address] [facility] [place] [address] Polo Acosta MD [address] [place] [phone] Social History Tobacco Use Types Packs/Day Years Used Date Smoking Tobacco: Never Assessed Sex and Gender Information Value Date Recorded Sex Assigned at Not on file Gender Identity Not on file Sexual Orientation Not on file documented as of this encounter Plan of Treatment Not on file documented as of this encounter Procedures Procedure Name Priority Date/Time Associated Diagnosis Comments DERMATOPATHOLOGY Routine 08/15/2019 12:0 0 AM DEVELOPMENTAL SERVICES WORKER documented in this encounter Results * DERMATOPATHOLOGY (08/15/2019 12:00 AM DEVELOPMENTAL SERVICES WORKER) Case Report Dermatopathology Report Case: [id number] Authorizing Provider: Polo Acosta MD Collected: 08/15/2019 12:00 AM Ordering Location: [facility] Received: 08/21/2019 07:45 AM Pathologist: Soledad Roldan MD Specimen: Skin, mid upper abdomen 0 9:16 PM DEVELOPMENTAL SERVICES WORKER DERMATOPATHOLOGY LABORATORY Final Diagnosis Specimen A. SKIN, mid upper abdomen: LENTIGINOUS MELANOCYTIC NEVUS, COMPOUND TYPE, IRRITATED (COMPOUND MELANOCYTIC NEVUS WITH ARCHITECTURAL DISORDER) (D22.5) NOT PRESENT AT SAMPLED MARGIN 0 9:16 PM [facility] DERMATOPATHOLOGY LABORATORY Clinical History R/O atypical melanocytic lesion. Check margins 0 9:16 PM [facility] DERMATOPATHOLOGY LABORATORY Gross Description Specimen A: Received is one formalin filled container labeled with the patient's name and designated mid upper abdomen. The specimen consists of a shave biopsy measuring 8x8x2 mm, inked. Jar 0. 0 9:16 PM [facility] DERMATOPATHOLOGY LABORATORY Microscopic Description Specimen A. SKIN, mid upper abdomen: This is a compound nevus. There is melanin pigment in the stratum corneum. There is architectural disorder characterized by a lentiginous proliferation of melanocytes between irregular nests of cells along the dermal-epidermal junction, highlighted by MART-1/Melan-A immunohistochemical staining. There is underlying fibroplasia of the papillary dermis. The intradermal component is bland appearance and matures with depth. This lesion is not present at the sampled margin of the specimen. (Compound Dez's Nevus or Compound Dysplastic Nevus) 0 9:16 PM [facility] DERMATOPATHOLOGY LABORATORY Disclaimer An external and internal positive and negative controls are appropriate for the histochemical, immunohistochemical and immunofluorescence stain(s) in this case (if any), except where stated explicitly. The performance characteristics of the stain(s) cited in this report were developed and its performance characteristic determined by the Dermatopathology Laboratory at [facility], directed by Dr. Margaret Gonzalez. These tests need not be, and therefore are not, approved by the [place] Food and Drug Administration. The tests are used for clinical purposes. Billing Codes Specimen Charges Stain Charges 03578 1 63281 1 0 9:16 PM [facility] DERMATOPATHOLOGY LABORATORY Embedded Images 0 9:16 PM [facility] DERMATOPATH[facility]Y LABORATORY Pathology/Cytolog y TISSUE SPECIMEN FROM SKIN / Unknown 08/15/2019 08/21/2019 7:45 AM DEVELOPMENTAL SERVICES WORKER Polo Acosta MD LAB - PATHOLOGY/CYTO LOGY ORDERABLES DERMATOPATHOLOGY LABORATORY [facility] - Department of Dermatology [address] [facility], 5th Floor Lab B [place], [place] [address] [place] [address] documented in this encounter Visit Diagnoses Not on filedocumented in this encounter Care Teams Construction Project Mgr Relationship Specialty Start Date End Date Brent Moreno MD [address] [facility], [address] PCP - General 11/11/20 documented as of this encounter
--- OUTSIDE RECORDS SUMMARY | 2024-08-07 14:42 | XMS_ITS | Encounter Summary ---
Author Organization [facility] Address [address] [place] [address] Care Team Providers Care Caddie Name Role Phone Brent Moreno MD Primary Care Provider [phone]- [phone] Encounter Details Date Type Department Care Team (Late st Contact Info) Description 03/01/2018 Lab Requisition [facility] Care DermPath Lab [address] [place] [address] Polo Acosta MD [address] [place] [phone] Social History Tobacco Use Types Packs/Day Years Used Date Smoking Tobacco: Never Assessed Sex and Gender Information Value Date Recorded Sex Assigned at Not on file Gender Identity Not on file Sexual Orientation Not on file documented as of this encounter Plan of Treatment Not on file documented as of this encounter Procedures Procedure Name Priority Date/Time Associated Diagnosis Comments DERMATOPATHOLOGY Routine 02/27/2018 12:0 0 AM CDT documented in this encounter Results * DERMATOPATHOLOGY (02/27/2018 12:00 AM CDT) Case Report Dermatopathology Report Case: [id number] Authorizing Provider: Polo Acosta MD Collected: 02/27/2018 12:00 AM Pathologist: Marcella Gonzalez MD Received: 03/01/2018 06:56 AM Specimen: Skin, let upper chest 8 2:12 PM CDT DERMATOPATHOLOGY LABORATORY Final Diagnosis Specimen A. SKIN, let upper chest: PIGMENTED SEBORRHEIC KERATOSIS (L82.1) 8 2:12 PM CDT DERMATOPATHOLOGY LABORATORY Clinical History SK R/O melanocytic lesion. 2:12 PM CDT DERMATOPATHOLOGY LABORATORY Gross Description Specimen A: Received is one formalin filled container labeled with the patient's name and designated let upper chest. The specimen consists of a shave biopsy measuring 10e0a7hn. Jar 0. 2:12 PM CDT DERMATOPATHOLOGY LABORATORY Microscopic Description Specimen A. SKIN, let upper chest: Sections show an acanthotic lesion composed of relatively uniform keratinocytes. There is hyperkeratosis and pseudo horn cysts. Pigment is present in the keratinocytes composing this tumor. 2:12 PM CDT DERMATOPATHOLOGY LABORATORY Disclaimer An external and internal positive and negative controls are appropriate for the histochemical, immunohistochemical and immunofluorescence stain(s) in this case (if any), except where stated explicitly. The performance characteristics of the stain(s) cited in this report were developed and its performance characteristic determined by the Dermatopathology Laboratory at [facility]. These tests need not be, and therefore are not, approved by the [place] Food and Drug Administration. The tests are used for clinical purposes. Billing Codes Specimen Charges Stain Charges 23470 1 2:12 PM CDT DERMATOPATHOLOGY LABORATORY Embedded Images 2:12 PM CDT DERMATOPATHOLOGY LABORATORY Pathology/Cytolog y TISSUE SPECIMEN FROM SKIN / Unknown 02/27/2018 03/01/2018 6:56 AM CDT Polo Acosta MD LAB - PATHOLOGY/CYTO LOGY ORDERABLES DERMATOPATHOLOGY LABORATORY [facility] - Department of Dermatology [address] [facility], 5th [place] [address], [facility] [phone] documented in this encounter Visit Diagnoses Not on filedocumented in this encounter Care Teams Caddie Relationship Specialty Start Date End Date Brent Moreno MD [address] [facility], [address] PCP - General 11/11/20 documented as of this encounter
--- OUTSIDE RECORDS SUMMARY | 2024-08-07 14:42 | XMS_ITS | Referral Summary ---
Author Organization [address] Address [address] [place] [id number] Care Team Providers Care Calender Runner Name Role Phone Brent Moreno MD Primary Care Provider [phone] Allergies Active Allergy Reactions Criticality Noted Date Comments Amoxicillin Other (See comments) Low 01/24/2024 Amoxicillin-Pot Clavulanate Other (See comments) Medium 01/10/2024 Pyspzjr-Ypg-Rad Reductase Inhibitors Mental status changes Low 01/24/2024 [...] Grade III hemorrhoids 04/25/2018 Rectal bleeding 04/25/2018 Social History Tobacco Use Types Packs/Day Years [...] on file Sexual Orientation Not on file Last Filed Vital Signs Vital Sign Reading Time Taken Comments Blood Pressure 135/78 01/24/2024 9:45 AM CDT Pulse 93 01/24/2024 9:45 AM CDT Temperature 36.9 C (98.5 F) 01/24/2024 9:45 AM CDT Respiratory Rate 18 05/19/2018 11:2 5 AM [employer]IFICIAL [employer] MA[employer] MACHINE OPERATOR Oxygen Saturation 96% 01/10/2024 3:52 PM CDT Inhaled Oxygen Concentration - - Weight 89.7 kg (197 lb 12.8 oz) 01/24/2024 9:45 AM CDT Height 177.8 cm (5' 10 ) 01/24/2024 9:45 AM CDT Body Mass Index 28.38 01/24/2024 9:45 AM CDT Plan of Treatment Not on file Procedures Procedure Name Priority Date/Time Associated Diagnosis Comments COLONOSCOPY 05/19/2018 7:28 AM ARTIFICIAL SNOW MAKING MACHINE OPERATOR from Last 3 Months or Most Recently Relevant to Health Maintenance Results * COLONOSCOPY (05/19/2018 7:28 AM ARTIFICIAL SNOW MAKING MACHINE OPERATOR) Anatomical Region Laterality Modality Other Narrative Procedure Note Stuart Oro MD - 05/19/2018 7:28 AM CST ENDOSCOPY LAB Patient Name: Chapincito Johnson Procedure Date: 05/19/2018 7:28 AM Admit Type: Outpatient Room: [facility] Date of : 1950 Instrument Name: [id number] [...] the bowelpreparation was evaluated using the BBPS ([place] Bowel Preparation Scale) with scores of: Right [...] Recently Relevant to Health Maintenance Insurance MEDICARE [facility] MEDICARE [facility] Advance Directives For more information, please contact: [phone] * Full Code (Latest Code Status on File) Date Activated Date Inactivated Comments 05/19/2018 8:53 AM 05/19/2018 1:46 PM Care Teams Calender Runner Relationship Specialty Start Date End Date Brent Moreno MD [id number] [place] [address] PCP - General Family Medicine 04/07/18
--- OUTSIDE RECORDS SUMMARY | 2024-08-07 14:43 | XMS_ITS | Data Portability ---
Author Organization HAR[facility] - [facility], PPaddy, [facility] Address [address] [place] [address] Assessment No assessment recorded. Plan of Treatment Reminders Order Date Submit Date Provider Last Modified By Organization Details Last Modified Time Details Appointments None recorded. Lab hemoglobin , gastrointe stinal, stool 2023 024 [email or web address] In-House Results, For Internal Use Only, Do Not Delete/merge, [id number] 14:51:38 CBC w/ auto diff 2023 024 [email or web address] In-House Results, For Internal Use Only, Do Not Delete/merge, [id number] 06:12:33 CMP, serum or plasma 2023 024 [email or web address] In-House Results, For Internal Use Only, Do Not Delete/merge, [id number] 06:12:34 Referral None recorded. Procedures None recorded. Surgeries None recorded. Imaging electrocar diogram, routine ECG, 12 leads min 2023 024 [facility] (Cardiology [facility] Em[facility]), [address], [place], [address], 4 09:23:40 XR, chest, 2 view 2022 023 [facility], [address], [address], [place], [address], 3 07:27:46 Medication Orders Pneumodoro n 1 2022 023 [email or web address] [id number], [address] [place], [address], 3 11:11:42 Pneumodoro n 2 2022 023 [id number] [place], [address], 3 11:11:45 codeine 10 mg-guaifen esin 100 mg/5 mL oral liquid 2022 023 [address] [place], [address], 3 11:11:26 cefdinir 300 mg capsule 2022 023 [id number] [place], [address], 3 11:11:23 Patient TargetsNo targets recorded. Patient Instructions Encounter Date Encounter Id Patient Instructions Last Modified By Organization Details Last Modified Time 12/02/2022 [id number] bronchitis: care instructions [email or web address] Not available 12/02/2022 17:33:28 Call or portal message with progress report in 4-5 days [email or web address] Not available 12/02/2022 17:32:50 04/21/2023 [id number] atrial fibrillation: care instructions cwessling Not available 04/21/2023 11:46:08 See hand tube winder as planned cwessling Not available 04/21/2023 11:46:07 12/01/2023 [id number] benign prostatic hyperplasia: care instructions [email or web address] Not available 12/01/2023 14:13:57 To whom it may concern: Chapincito Johnson date of 1950, was examined today and found in good health and able to undergo cataract surgery under topical anesthesia. Very truly your Brent Moreno MD cwessling Not available 12/01/2023 14:13:56 12/07/2023 [id number] hemorrhoids: car e instructions cwessling Not available 12/07/2023 14:50:05 this looks more likely like a hemorrhoidal event, rather than a malignancy in the colorectal area, but having been operated there before, he should see his colorectal surgeon, Dr. Stuart Oro again. [email or web address] Not available 12/07/2023 14:51:06 Reason for Referral None Reported. Results Created Date Observation Date Name Description Value Unit Range Abnormal Flag Note LastModifiedBy Organization Detail LastModifiedTime 12/01/19 24 12/01/2023 CBC W/DIF F WBC 6.4 10'3/ uL 3.5-10 .5 Not Available [facility] (Lab) [address], [place], [address], 12/02/2023 06:12:33 12/01/19 24 12/01/2023 CBC W/DIF F RBC 4.88 10'6/ uL (based on docume nted legal sex) 4.30-5 .80 Not Available [facility] (Lab) [address], [place], [address], 12/02/2023 06:12:33 12/01/19 24 12/01/2023 CBC W/DIF F HGB 14.9 g/dL (based on docume nted legal sex) 13.0-1 7.5 Not Available [facility] (Lab) [address], [place], [address], 12/02/2023 06:12:33 12/01/19 24 12/01/2023 CBC W/DIF F HCT 48.5 % (based on docume nted legal sex) 38.0-5 0.0 Not Available [facility] (Lab) [address], [place], [address], 12/02/2023 06:12:33 12/01/19 24 12/01/2023 CBC W/DIF F MCV 99.4 fL 80.0-9 9.0 high Not Available [facility] (Lab) [address], [place], [address], 12/02/2023 06:12:33 12/01/19 24 12/01/2023 CBC W/DIF F MCH 30.5 pg 27.0-3 4.0 Not Available [facility] (Lab) [address], [place], [address], 12/02/2023 06:12:33 12/01/19 24 12/01/2023 CBC W/DIF F MCHC 30.7 g/dL 32.0-3 5.5 low Not Available [facility] (Lab) [address], [place], [address], 12/02/2023 06:12:33 12/01/19 24 12/01/2023 CBC W/DIF F RDW 13.4 % 11.0-1 5.0 Not Available [facility] (Lab) [address], [place], [address], 12/02/2023 06:12:33 12/01/19 24 12/01/2023 CBC W/DIF F plt 214 10'3/ uL 150-40 0 Not Available [facility] (Lab) [address], [place], [address], 12/02/2023 06:12:33 12/01/1912/01/2023 CBC W/DIF F MPV 11.7 fL 8.8-12 .1 Not Available [facility] (Lab) [address], [place], [address], 12/02/2023 06:12:33 12/01/1912/01/2023 CBC W/DIF F NRBC's 0.0 % 0.0 Not Available [facility] (Lab) [address], [place], [address], 12/02/2023 06:12:33 12/01/19 24 12/01/2023 CBC W/DIF F absolute NRBCs 0.0 10'3/ uL no refere nce range establ ished Not Available [facility] (Lab) [address], [place], [address], 12/02/2023 06:12:33 12/01/19 24 12/01/2023 CBC W/DIF F neutrophils 68.1 % 34.0-7 3.0 Not Available [facility] (Lab) [address], [place], [address], 12/02/2023 06:12:33 12/01/19 24 12/01/2023 CBC W/DIF F lymphocytes 22.0 % 15.0-5 0.0 Not Available [facility] (Lab) [address], [place], [address], 12/02/2023 06:12:33 12/01/19 24 12/01/2023 CBC W/DIF F monocytes 7.8 % 1.0-15 .0 Not Available [facility] (Lab) [address], [place], [address], 12/02/2023 06:12:33 12/01/19 24 12/01/2023 CBC W/DIF F eosinophils 1.3 % 0.0-8. 0 Not Available [facility] (Lab) [address] [facility], [place], [address], 12/02/2023 06:12:33 12/01/19 24 12/01/2023 CBC W/DIF F basophils 0.5 % 0.0-2. 0 Not Available [facility] (Lab) [address] [place], [address], 12/02/2023 06:12:33 12/01/19 24 12/01/2023 CBC W/DIF F immature granulocytes 0.3 % no define d refere nce range Not Available [facility] (Lab) [address] [place], [address], 12/02/2023 06:12:33 12/01/19 24 12/01/2023 CBC W/DIF F absolute neutrophils 4.4 10'3/ uL 1.5-8. 0 Not Available [facility] (Lab) [address] [place], [address], 12/02/2023 06:12:33 12/01/19 24 12/01/2023 CBC W/DIF F absolute lymphocytes 1.4 10'3/ uL 1.0-4. 0 Not Available [facility] (Lab) [address] [facility], [place], [address], 12/02/2023 06:12:33 12/01/19 24 12/01/2023 CBC W/DIF F absolute monocytes 0.5 10'3/ uL 0.2-1. 0 Not Available [facility] (Lab) [address] [facility], [place], [address], 12/02/2023 06:12:33 12/01/19 24 12/01/2023 CBC W/DIF F absolute eosinophils 0.1 10'3/ uL 0.0-0. 6 Not Available [facility] (Lab) [address], [place], [address], 12/02/2023 06:12:33 12/01/19 24 12/01/2023 CBC W/DIF F absolute basophils 0.0 10'3/ uL 0.0-0. 3 Not Available [facility] (Lab) [address], [place], [address], 12/02/2023 06:12:33 12/01/19 24 12/01/2023 CBC W/DIF F absolute immature granulocytes 0.0 10'3/ uL 0.00-0 .10 DRAWN BY STAFF 2023 4:15 AM: P indic ates parti al resul ts on a panel have been relea sed. Addit ional resul ts will follo w. DRAWN BY STAFF 2023 4:15 AM: This resul t has been final verif ied. No addit ional or diaz ed resul ts are expec katherine. Not Available [facility] (Lab) [address], [place], [address], 12/02/2023 06:12:33 12/01/19 24 12/01/2023 CMP(C OMPRE HENSI VE METAB OLIC PANEL ) sodium 140 mmol/ L 133-14 6 Not Available [facility] (Lab) [address], [place], [address], 12/02/2023 06:12:34 12/01/19 24 12/01/2023 CMP(C OMPRE HENSI VE METAB OLIC PANEL ) potassium 4.9 mmol/ L 3.5-5. 1 Not Available [facility] (Lab) [address], [place], [address], 12/02/2023 06:12:34 12/01/19 24 12/01/2023 CMP(C OMPRE HENSI VE METAB OLIC PANEL ) chloride 107 mmol/ L 98-107 Not Available [facility] (Lab) [address], [place], [address], 12/02/2023 06:12:34 12/01/19 24 12/01/2023 CMP(C OMPRE HENSI VE METAB OLIC PANEL ) carbon dioxide 27 mmol/ L 21-31 Not Available [facility] (Lab) [address], [place], [address], 12/02/2023 06:12:34 12/01/19 24 12/01/2023 CMP(C OMPRE HENSI VE METAB OLIC PANEL ) anion gap 6 mmol/ L 4-13 Not Available [facility] (Lab) [address], [place], [address], 12/02/2023 06:12:34 12/01/19 24 12/01/2023 CMP(C OMPRE HENSI VE METAB OLIC PANEL ) blood urea nitrogen 15 mg/dL 7-[address] [facility] (Lab) [address], [place], [address], 12/02/2023 06:12:34 12/01/19 24 12/01/2023 CMP(C OMPRE HENSI VE METAB OLIC PANEL ) creatinine 1.22 mg/dL 0.60-1 .30 Not Available [facility] (Lab) [address], [place], [address], 12/02/2023 06:12:34 12/01/19 24 12/01/2023 CMP(C OMPRE HENSI VE METAB OLIC PANEL ) egfrcr (CKD-epi 2020) 62 mL/mi n/1.7 3_m2 >=60 Not Available [facility] (Lab) [address], [place], [address], 12/02/2023 06:12:34 12/01/19 24 12/01/2023 CMP(C OMPRE HENSI VE METAB OLIC PANEL ) calcium 9.3 mg/dL 8.3-10 .5 Not Available [facility] (Lab) [address], [place], [address], 12/02/2023 06:12:34 12/01/19 24 12/01/2023 CMP(C OMPRE HENSI VE METAB OLIC PANEL ) glucose 88 mg/dL 70-100 Not Available [facility] (Lab) [address], [place], [address], 12/02/2023 06:12:34 12/01/19 24 12/01/2023 CMP(C OMPRE HENSI VE METAB OLIC PANEL ) protein, total 7.4 g/dL 6.4-8. 3 Not Available [facility] (Lab) [address], [place], [address], 12/02/2023 06:12:34 12/01/19 24 12/01/2023 CMP(C OMPRE HENSI VE METAB OLIC PANEL ) albumin 4.3 g/dL 3.5-5. 0 Not Available [facility] (Lab) [address] [place], [address], 12/02/2023 06:12:34 12/01/19 24 12/01/2023 CMP(C OMPRE HENSI VE METAB OLIC PANEL ) ALT 21 units /L 11-51 Not Available [facility] (Lab) [address], [place], [address], 12/02/2023 06:12:34 12/01/19 24 12/01/2023 CMP(C OMPRE HENSI VE METAB OLIC PANEL ) alkaline phosphatase 53 units /L 34-104 Not Available [facility] (Lab) [address], [place], [address], 12/02/2023 06:12:34 12/01/19 24 12/01/2023 CMP(C OMPRE HENSI VE METAB OLIC PANEL ) AST 20 units /L 13-39 Not Available [facility] (Lab) [address], [place], [address], 12/02/2023 06:12:34 12/01/19 24 12/01/2023 CMP(C OMPRE HENSI VE METAB OLIC PANEL ) bilirubin, total 0.9 mg/dL 0.2-1. 2 DRAWN BY STAFF Not Available [facility] (Lab) [address], [place], [address], 12/02/2023 06:12:34 12/07/19 24 12/07/2023 hemog lobin , gastr ointe jeffery l, stool Occult Blood negati ve Not Available In-House Results For Internal Use Only, Do Not Delete/merge, [id number] 12/07/2023 14:51:16 12/04/19 23 12/02/2022 XR, chest , 2 view No observ ation record ed. kristy [facility] [address], [place], [address], 12/07/2022 01:07:04 05/09/20 23 05/09/2023 XR, chest , 2 view No observ ation record ed. SHAHRZAD [address], [place], [address], 05/10/2023 11:36:28 12/04/19 24 12/03/2023 elect ishmael ray am, routi ne ECG, 12 leads min No observ ation record ed. [facility] (Resp Services) [address], [place], [address], 12/06/2023 00:37:03 01/10/20 24 01/09/2024 XR, abdom en No observ ation record ed. [facility] [address], [place], [address], 01/11/2024 01:17:34 04/17/2004/10/2024 fluor oscop y (PROC ) No observ ation record ed. [facility] [address], [place], [address], 04/19/2024 00:02:10 05/11/20 24 05/11/2024 XR, abdom en No observ ation record ed. [facility] (Lab) [address], [place], [address], 05/17/2024 17:43:27 Result Notes None recorded. Problems Name Problem SNOMED Code Status Onset Date Resolution Date Notes Provider Name and Address Organization Details Recorded Time Pre-surgery evaluation Active 2023 Brent Moreno MD [address] [place], [address] , [facility] 4 14:09:23 Hematochezia 538276705 Active 2023 Brent Moreno MD [address] [place], [address] , [facility] 4 14:48:29 Hemorrhoids 14449634 Active 2023 Brent Moreno MD [address] [place], [address] , [facility] 4 14:48:30 Lateral epicondylitis 561199550 Active Not Available [facility] 2 08:47:27 Low back strain 888646219 Active Not Available [facility] 2 08:47:27 Low back pain 244152308 Active Not Available [facility] 2 08:47:27 Obstructive sleep apnea syndrome 15170660 Active Not Available [facility] 2 08:47:27 Abdominal pain 62481087 Active Not Available [facility] 2 08:47:28 Inguinal pain 632831762 Active Not Available [facility] 2 08:47:27 Fatigue 33993184 Active Not Available [facility] 2 08:47:27 Benign prostatic hyperplasia 987816458 Active Not Available [facility] 2 08:47:27 Nausea 056296858 Active Not Available [facility] 2 08:47:27 Dry skin 97692081 Active Not Available [facility] 2 08:47:27 Bronchitis 59603343 Active Not Available [facility] 2 08:47:27 Diarrhea 56476231 Active Not Available [facility] 2 08:47:27 Upper respiratory infection 21686672 Active Not Available [facility] 2 08:47:27 Viral disease 94169137 Active Not Available [facility] 2 08:47:28 Aortic valve stenosis 90802611 Active Not Available [facility] 2 08:47:27 Internal hemorrhoids grade III 765130790 Active 2017 Not Available [facility] 2 08:47:27 Rectal hemorrhage 63482422 Active 2017 Not Available [facility] 2 08:47:27 Calcific aortic stenosis - bicuspid valve 032969047 Active 2019 Not Available [facility] 2 08:47:27 Impotence Active 2019 Not Available [facility] 2 08:47:27 History of calculus of kidney 972520834 Active 2019 Not Available [facility] 2 08:47:27 Adult health examination Active 2021 Not Available [facility] 2 08:47:27 Mucus in stool 052222794 Active 2021 Not Available [facility] 2 08:47:27 Aortic valve sclerosis 54316181 Active 2021 Not Available [facility] 2 08:47:27 External hemorrhoids 10798529 Active 2021 Not Available [facility] 2 08:47:27 Gastroesophag eal reflux disease 574159863 Active 2021 Not Available [facility] 2 08:47:27 Medication monitoring Active 2021 Not Available [facility] 2 08:47:27 Allergic rhinitis 24258212 Active 2022 Brent Moreno MD [address] [place], [address] , [facility] 3 15:28:54 Problem Notes None recorded. Procedures Surgical History Date Name Laterality Status Provider Name and Address Organization Details Recorded Time Eye Surgery completed Lyubov Vaca [facility] 05/28/2019 11:25:53 Imaging Results Imaging Date Name Status LastModified by Organiz ation Details LastModified Time 12/02/2022 XR, chest, 2 view completed [facility] [address] [address], [place], [address], 12/07/2022 01:07:04 05/09/2023 XR, chest, 2 view completed [facility] [address], [place], [address], 05/10/2023 11:36:28 12/03/2023 electrocardiogr am, routine ECG, 12 leads min completed [facility] (Resp Services) [address], [address], 12/06/2023 00:37:03 01/09/2024 XR, abdomen completed [facility] [address], [place], [address], 01/11/2024 01:17:34 04/10/2024 fluoroscopy (PROC) completed [facility] [address], [place], [address], 04/19/2024 00:02:10 05/11/2024 XR, abdomen completed [email or web address] [facility] (Lab) [address], [place], [address], 05/17/2024 17:43:27 Procedure Notes None recorded. Medical Equipment None Reported. Allergies Allergen ID Allergen Name Allergen Category Reaction Reaction Severity Criticality Documentation Date Start Date Code Code System Note Provider Name and Address Organization Details Recorded Time 86361 Augmentin medicatio n other moderate Not available 06/11/2019 65222 2 RxNorm kassy stasi s with hyper bilir ubine geovanny Brent Moreno MD [address] [place], [address] , [facility] 9 12:36:52 Medications Name Sig Start Date Stop Date Status Note LastModified by Organization Details LastModified Time Prescript ion - Renewal 07/07 completed Not Available Not Available Not Available Pneumodor on 2 10 drops qid 12/29 completed Not Available Not Available Not Available Nux Vomica 30x 3 tabs tid 11/25 completed Not Available Not Available Not Available OrthoBiot ic 2 qd 04/29 completed Not Available Not Available Not Available Pneumodor on 2 10 drops qid 04/21 completed Not Available Not Available Not Available Pneumodor on 2 10 drops qid 06/11 completed Not Available Not Available Not Available OrthoDige stZyme 2 tid before meals 10/21 completed Not Available Not Available Not Available Berberis Quartz 1sc 11/25 completed Not Available Not Available Not Available Vitamin D3 with K2 5,000 IU 1qd 09/19 completed Not Available Not Available Not Available Formica 5X inj s.c. 11/25 completed Not Available Not Available Not Available Pneumodor on 1 10 drops qid 12/29 completed Not Available Not Available Not Available Nguyen m Compound 1sc 11/25 completed Not Available Not Available Not Available Pneumodor on 1 10 drops qid 04/21 completed Not Available Not Available Not Available Pneumodor on 1 10 drops qid 06/11 completed Not Available Not Available Not Available Viracid as directed 11/25 completed Not Available Not Available Not Available cyclobenz aprine 10 mg tablet TK 1 T PO BID FOR 10 DAYS 07/07 completed Not Available Not Available Not Available amoxicill in 500 mg capsule 05/28 completed Not Available Not Available Not Available doxycycli ne hyclate 100 mg capsule TAKE ONE CAPSULE BY MOUTH ONCE 11/30 completed Not Available Not Available Not Available clindamyc in HCl 300 mg capsule 04/29 completed Not Available Not Available Not Available sildenafi l 50 mg tablet TAKE 1 TABLET BY MOUTH EVERY DAY 04/29 completed Not Available Not Available Not Available azithromy pallavi 250 mg tablet TAKE 2 TABLETS BY MOUTH TODAY, THEN TAKE 1 TABLET DAILY FOR 4 DAYS 12/02 completed Not Available Not Available Not Available amiodaron e 200 mg tablet TAKE 1 TABLET BY MOUTH EVERY DAY active now 1 and 1/2 on alternat ing days Not Available Not Available Not Available ondansetr on HCl 4 mg tablet 01/09 completed Not Available Not Available Not Available prednison e 20 mg tablet TAKE 2 TABLETS BY MOUTH EVERY DAY X4 DAYS WITH FOOD *NO OTHER NSAIDS(A LEVE, IBUPROFE N) 12/02 completed Not Available Not Available Not Available potassium chloride ER 10 mEq tablet,ex tended release 04/21 completed Not Available Not Available Not Available omeprazol e 40 mg capsule,d elayed release TAKE 1 CAPSULE BY MOUTH EVERY DAY 30 MIN BEFORE BREAKFAS T 04/21 completed Not Available Not Available Not Available tramadol 50 mg tablet 11/30 completed Not Available Not Available Not Available pantopraz ole 20 mg tablet,de layed release TAKE 1 TABLET BY MOUTH EVERY DAY 10/21 completed Not Available Not Available Not Available ketorolac 0.5 % eye drops 05/28 completed Not Available Not Available Not Available oxycodone -acetamin ophen 5 mg-325 mg tablet 05/28 completed Not Available Not Available Not Available famotidin e 20 mg tablet Take 1 tablet every day by oral route as needed. active Not Available Not Available No t Available prednisol one acetate 1 % eye drops,mechelle pension 05/28 completed Not Available Not Available Not Available tamsulosi n 0.4 mg capsule Take 1 capsule twice a day by oral route. 11/30 completed Not Available Not Available Not Available ciproflox acin 0.3 % eye drops 11/25 completed Not Available Not Available Not Available benzonata te 100 mg capsule TAKE 1 CAPSULE BY MOUTH THREE TIMES A DAY FOR 10 DAYS 10/21 completed Not Available Not Available Not Available econazole nitrate 1 % topical cream 11/25 completed Not Available Not Available Not Available cephalexi n 500 mg capsule 06/30 completed Not Available Not Available Not Available ibuprofen 400 mg tablet 04/29 completed Not Available Not Available Not Available codeine 10 mg-guaife nesin 100 mg/5 mL oral liquid TAKE 10 ML BY MOUTH EVERY 4 HOURS 04/21 completed Not Available Not Available Not Available pravastat in 20 mg tablet 05/28 completed Not Available Not Available Not Available furosemid e 20 mg tablet 04/21 completed Not Available Not Available Not Available metoprolo l succinate ER 25 mg tablet,ex tended release 24 hr TAKE 1 TABLET BY MOUTH EVERY DAY 12/10 completed Not Available Not Available Not Available ibuprofen 600 mg tablet 12/29 completed Not Available Not Available Not Available albuterol sulfate HFA 90 mcg/actua tion aerosol inhaler INHALE 2 PUFFS BY MOUTH EVERY 4 HOURS NEEDED 12/02 completed Not Available Not Available Not Available ipratropi um bromide 42 mcg (0.06 %) nasal spray 01/09 completed Not Available Not Available Not Available ketoconaz ole 2 % topical cream 04/29 completed Not Available Not Available Not Available ondansetr on 4 mg disintegr ating tablet 05/28 completed Not Available Not Available Not Available cefdinir 300 mg capsule TAKE 1 CAPSULE BY MOUTH EVERY 12 HOURS 04/21 completed Not Available Not Available Not Available amoxicill in 875 mg-potass ium clavulana te 125 mg tablet TAKE 1 TABLET BY MOUTH EVERY 12 HOURS 06/11 completed Not Available Not Available Not Available senna-doc usate sodium 8.6 mg-50 mg tablet Take by oral route. 04/21 completed Not Available Not Available Not Available rosuvasta tin 10 mg tablet 06/30 completed Not Available Not Available Not Available tadalafil 5 mg tablet Take 1 tablet every day by oral route. active Not Available Not Available No t Available chlorhexi dine gluconate 0.12 % mouthwash 04/29 completed Not Available Not Available Not Available aspirin 11/30 completed Not Available Not Available Not Available cholecalc iferol (vitamin D3) 1,250 mcg (50,000 unit) capsule Take one daily for 3 days, then one twice weekly 11/25 completed Not Available Not Available Not Available gatifloxa pallavi 0.5 % eye drops INSTILL 1 DROP TO THE LEFT EYE 3 TIMES A DAY BEGINNIN G THE DAY AFTER SURGERY 05/28 completed Not Available Not Available Not Available Suprep Bowel Prep Kit 17.5 gram-3.13 gram-1.6 gram oral solution 07/07 completed Not Available Not Available Not Available PreviDent 5000 Booster Plus 1.1 % dental paste USE AT BEDTIME THEN EXPECTOR ATE BUT DO NOT RINSE WITH WATER AFTERWAR DS 04/29 completed Not Available Not Available Not Available Eliquis 5 mg tablet TAKE 1 TABLET BY MOUTH TWICE A DAY active Not Available Not Available No t Available metoprolo l succinate ER 25 mg capsule sprinkle, ext. release 24 hr Take 1 capsule twice a day by oral route. 11/30 completed Not Available Not Available Not Available Paxlovid 300 mg (150 mg x 2)-100 mg tablets in a dose pack TAKE 1 DOSE PACK BY ORAL ROUTE PER PACKAGE DIRECTIO NS 10/21 completed Not Available Not Available Not Available Vitals Date Recorded Body height Body mass index (BMI) Body weight Body temperature Heart rate Oxygen saturation Oxygen saturation in Arterial blood by Pulse oximetry Systolic blood pressure Diastolic blood pressure Provider Name and Address Organization Details Last Updated DateTime 3 177.8 cm 29.1 kg/m2 73952.2 5 g 98.2 [degF] 73 /min 95 % 95 % 124 mm[Hg] 77 mm[Hg] Van Tassell Malic [place] - Cooper [facility] 3 16:48:10 Date Recorded Body height Body mass index (BMI) Body weight Body temperature Heart rate Systolic blood pressure Diastolic blood pressure Provider Name and Address Organization Details Last Updated DateTime 3 177.8 cm 29 kg/m2 77340.6 6 g 98.1 [degF] 79 /min 109 mm[Hg] 72 mm[Hg] Rosmery LARIOS Kenneth [facility] 3 11:06:57 Date Recorded Body height Body mass index (BMI) Body weight Heart rate Body temperature Systolic blood pressure Diastolic blood pressure Provider Name and Address Organization Details Last Updated DateTime 3 177.8 cm 28 kg/m2 07221.7 9 g 85 /min 97.8 [degF] 131 mm[Hg] 77 mm[Hg] Lennox [facility] 3 11:35:58 Date Recorded Body height Body mass index (BMI) Body weight Body temperature Heart rate Systolic blood pressure Diastolic blood pressure Provider Name and Address Organization Details Last Updated DateTime 4 177.8 cm 28.7 kg/m2 57099.1 9 g 98.2 [degF] 60 /min 119 mm[Hg] 67 mm[Hg] Lennox [facility] 4 13:15:53 Date Recorded Body height Body mass index (BMI) Body weight Body temperature Heart rate Systolic blood pressure Diastolic blood pressure Provider Name and Address Organization Details Last Updated DateTime 4 177.8 cm 28.7 kg/m2 31573.7 6 g 98.2 [degF] 81 /min 120 mm[Hg] 72 mm[Hg] Lennox [facility] 4 13:20:20 Social History Question Answer Notes LastModified by Organizat ion Details LastModified Time Tobacco Smoking Status Never Smoker HARRIET Newton [facility] 12/07/2023 13:20:33 What Is Your Level Of Alcohol Consumption? Moderate amalic Information not available 12/07/2023 Marital Status barbara Campos n not available 11/06/2013 Sex: Unknown Functional Status None recorded. Mental Status None recorded. Family History Relationship Description Onset Age of this Age Resolved Age Notes LastModified by Organization Details LastModified Time Daughter Malignant tumor of breast cwessling Not available 2015 15:21:15 Father Malignant neoplastic disease 90 CLL cwessling Not available 2015 15:21:15 Father Coronary arterioscler osis [address] - was smoker cwessling Not available 08/26/2015 15:21:15 Father Cerebrovascu lar accident cwessling Not available 01/2016 15:21:15 Mother Malignant lymphoma 76 cwessling Not available 2015 15:21:15 Brother Coronary arterioscler osis 68 had bypass cwessling Not available 08/26/2015 15:21:15 Brother Alcoholism cwessling Not avail able 08/26/2015 15:21:15 Brother Bipolar disorder cwessling Not available 2015 15:21:15 Brother Aneurysm 59 cwessling Not availab le 08/26/2015 15:21:15 Brother Malignant lymphoma cwessling Not available 2015 15:21:15 Medical History Condition Response Coronary Artery Disease N Gout N Kidney Stones N Blood Diseases N Hyperthyroidism N Depression N COPD N Hypothyroidism N Developmental or Behavioral Disorders N Anxiety Disorder N Muscle, Joint, or Bone Problems N Vision or Eye Problems N Arthritis N Head Injury/Concussion N Congenital Anomalies N Cancer N Stroke N ADHD N Bladder or Kidney Problems N Hospital Admission other than N High Cholesterol N Liver Disease N Fibromyalgia N Headaches N Kidney Disease N Ear or Hearing Problems N Thyroid Problems N Skin Problems N Anemia N Constipation N Mental Illness N Diabetes N Bedwetting N Heart Problems/Murmur N Seizures/Epilepsy N Tuberculosis N Diverticulitis N Asthma N Allergies N Reflux/GERD N Heart Disease N Pulmonary Embolism N Hypertension N Chicken Pox Y Autism Spectrum Disorder (ASD) N Osteoporosis N Immunizations Vaccine Type Date Status Note Provider Nam e and Address Organization Details Recorded Time COVID-19, mRNA, LNP-S, PF, 30 mcg/0.3 mL dose 08/16/2020 completed HARRIET [facility] 02/01/2022 11:27:04 COVID-19, mRNA, LNP-S, PF, 30 mcg/0.3 mL dose 09/06/2020 completed Zoya Norlina HARRIET arndt [facility] 02/01/2022 11:27:04 COVID-19, mRNA, LNP-S, PF, 30 mcg/0.3 mL dose 06/05/2021 completed Zoya Pereyras HARRIET arndt [facility] 02/01/2022 11:27:04 COVID-19, mRNA, LNP-S, PF, 30 mcg/0.3 mL dose, elvia-sucrose 01/29/2022 completed Zoya Pereyras hair [facility] 02/01/2022 11:27:04 Past Encounters Encounter ID Performer Location Encounter Start Date Encounter Closed Date Diagnosis/Indication Diagnosis SNOMED-CT Code Diagnosis ICD10 Code Diagnosis Note [id number] [place] [address] 61727-487 3 11/06/2013 09:42:22 11/06/2013 10:50:44 Lateral epicondylitis 944594075 Low back strain 229903108 Low back pain 079011105 Obstructiv e sleep apnea syndrome 63126069 [id number] [address] Office [address] [place] [address] 36578-777 3 05/02/2014 16:52:04 05/02/2014 19:10:28 Abdominal pain 32479695 Inguinal pain 716520117 Fatigue 82673744 History of calculus of kidney 043146015 Benign pro static hyperplasia 432614496 [id number] Malou Grey Main Office [address] [place] [address] 78440-483 3 07/08/2014 19:27:27 07/11/2014 14:27:52 Nausea 628944896 Dry skin 26371164 History of calculus of kidney 113876094 [id number] Main Office [address] [place] [address] 68090-876 3 08/14/2014 15:49:48 08/14/2014 16:40:07 Bronchitis 08401090 Benign pro static hyperplasia 019160446 History of calculus of kidney 480676343 Obstructiv e sleep apnea syndrome 40213118 [id number] Bertin Ferreira Main Office [address] [place] [address] 67898-662 3 05/19/2015 19:05:24 05/19/2015 20:27:16 Adult health examination 986189728 Z00.00 Family his tory of ischemic heart disease 905793798 Z82.49 Benign pro static hyperplasia 143224004 D29.1 History of calculus of kidney 554282925 Z87.442 Fatigue 15193835 R53.83 Diarrhea 80996271 R19.7 [id number] [facility] Main Office [address] [place] [address] 95212-662 3 06/18/2015 10:19:57 06/18/2015 11:38:24 Upper respiratory infection 20001918 J06.9 Viral disease 35856220 B 34.9 [id number] Lyubov Castellanos Main Office [address] [place] [address] 31024-231 3 08/26/2015 13:52:44 08/26/2015 15:37:13 History of calculus of kidney 282822828 Z87.442 Aortic valve stenosis 60 176138 I35.0 Benign pro static hyperplasia 175682904 D29.1 [id number] Brent Moreno MD Main Office [address] [place] [address] 73322-303 3 04/29/2016 10:28:21 04/29/2016 11:46:43 Family history of ischemic heart disease 896067081 Z82.49 Benign pro static hyperplasia 027587816 D29.1 History of calculus of kidney 776438871 Z87.442 Fatigue 53734293 R53.83 Hyperglycemia 69315335 R 73.9 Adult [facility] th examination 192580629 Z00.00 [id number] Brent Moreno MD Main Office [address] [place] [address] 51108-215 3 11/25/2016 17:22:11 11/25/2016 18:47:51 Upper respiratory infection 06032457 J06.9 Dermatophy tosis of the body 447670483 B35.4 History of calculus of kidney 124922752 Z87.442 Low back pain 227840577 M54.5 Vitamin D deficiency 347 40103 E55.9 [id number] Brent Moreno MD Main Office [address] [place] [address] 24102-860 3 12/29/2017 11:20:58 12/29/2017 12:50:27 Adult health examination 829014999 Z00.00 History of calculus of kidney 160776108 Z87.442 Vitamin D deficiency 347 87620 E55.9 Hyperglycemia 13878506 R 73.9 Hyperhomocysteinemia 419 772826 E72.11 Diarrhea 99149843 R19.7 [id number] Brent Moreno MD Main Office [address] [place] [address] 73498-945 3 04/07/2018 10:06:08 04/07/2018 11:10:49 History of calculus of kidney 688237340 Z87.442 Vitamin D deficiency 347 49817 E55.9 Hyperglycemia 82579918 R 73.9 Hyperhomocysteinemia 419 024926 E72.11 Diarrhea 07657623 R19.7 Incontinence of feces 72 508435 R15.9 Bacterial overgrowth syndrome 53588287 A04.9 External hemorrhoids 239 09819 K64.4 Family his tory of ischemic heart disease 855449172 Z82.49 Family his tory of aneurysm of thoracic aorta 898604883 Z82.49 [id number] Brent Moreno MD Main Office [address] [place] [address] 26454-129 3 07/07/2018 10:26:16 07/07/2018 11:35:11 Coronary arteriosclerosis in [place] artery 0990864938 107 I25.10 Aortic valve stenosis 60 004923 I35.0 External hemorrhoids 239 01883 K64.4 [id number] Brent Moreno MD Main Office [address] [place] [address] 06473-795 3 09/19/2018 14:18:53 09/19/2018 16:11:29 Coronary arteriosclerosis 12650762 I25.10 Aortic valve stenosis 60 743344 I35.0 Heart murmur 68255293 R0 1.1 [id number] Brent Moreno MD Main Office [address] [place] [address] 34379-908 3 05/28/2019 10:49:04 05/28/2019 12:30:55 Bronchitis 59236389 J40 Bicuspid aortic valve 72 521028 Q23.1 Periapical abscess 18113 1005 K04.7 [id number] Brent Moreno MD Main Office [address] [place] [address] 47489-936 3 06/11/2019 11:16:50 06/11/2019 12:46:53 Cholestasis 72149858 K71.0 Adverse re action to drug 85978476 T50.905D Acute sinusitis 20559754 J01.90 [id number] Brent Moreno MD Main Office [address] [place] [address] 18402-226 3 01/15/2020 12:29:23 01/15/2020 13:49:07 Impotence 987416111 N52.9 Benign pro static hyperplasia 386014808 D29.1 Obstructiv e sleep apnea syndrome 32697248 G47.33 Calcific a ortic stenosis - bicuspid valve 513732344 Q23.0 History of calculus of kidney 676129263 Z87.442 [id number] Brent Moreno MD Main Office [address] [place] [address] 83256-580 3 04/29/2020 11:24:18 04/29/2020 12:58:01 Mucus in stool 068710002 R19.5 Aortic kirstie ve sclerosis 03739880 I35.8 Impotence 296227674 N52. 9 Benign pro static hyperplasia 028706071 D29.1 Obstructiv e sleep apnea syndrome 67714646 G47.33 Calcific a ortic stenosis - bicuspid valve 479727453 Q23.0 History of calculus of kidney 049766525 Z87.442 [id number] Brent Moreno MD Main Office [address] [place] [address] 30097-480 3 06/30/2021 10:08:44 06/30/2021 11:18:24 Mucus in stool 992348735 R19.5 Aortic kirstie ve sclerosis 32973507 I35.8 Impotence 135724962 N52. 9 Benign pro static hyperplasia 681110312 D29.1 Obstructiv e sleep apnea syndrome 51423241 G47.33 Calcific a ortic stenosis - bicuspid valve 381567760 Q23.0 History of calculus of kidney 118914587 Z87.442 Adult heal th examination 011912662 Z00.00 External hemorrhoids 239 51764 K64.4 [id number] Brent Moreno MD Main Office [address] [place] [address] 91423-762 3 01/28/2022 17:07:32 01/28/2022 19:12:34 Mucus in stool 801188383 R19.5 Aortic kirstie ve sclerosis 50994071 I35.8 Impotence 927514356 N52. 9 Benign pro static hyperplasia 359797288 D29.1 Obstructiv e sleep apnea syndrome 50114203 G47.33 Calcific a ortic stenosis - bicuspid valve 567087920 Q23.0 History of calculus of kidney 915071738 Z87.442 External hemorrhoids 239 82116 K64.4 Gastroesop hageal reflux disease 177222214 K21.9 Medication monitoring 39 0889681 Z51.81 [id number] Brent Moreno MD Main Office [address] [place] [address] 53014-424 3 10/21/2022 14:02:41 10/21/2022 15:33:53 Mucus in stool 401328339 R19.5 Aortic kirstie ve sclerosis 91051599 I35.8 Impotence 856355702 N52. 9 Benign pro static hyperplasia 155092459 D29.1 Obstructiv e sleep apnea syndrome 16679527 G47.33 Calcific a ortic stenosis - bicuspid valve 185596572 Q23.0 History of calculus of kidney 477039440 Z87.442 External hemorrhoids 239 49141 K64.4 Gastroesop hageal reflux disease 208777007 K21.9 Medication monitoring 39 9191030 Z51.81 Adult [facility] th examination 572208275 Z00.00 Allergic rhinitis 371184 04 J30.9 [id number] Brent Moreno MD Main Office [address] [place] [address] 33979-328 3 12/02/2022 16:13:16 12/02/2022 17:38:36 Bronchitis 35661014 J40 [id number] Brent Moreno MD Main Office [address] [place] [address] 04430-455 3 04/21/2023 10:59:57 04/21/2023 11:52:06 Calcific aortic stenosis - bicuspid valve 881006228 Q23.0 Aneurysm o f ascending aorta 040756410 I71.21 Atrial fibrillation 4943 6004 I48.91 [id number] Brent Moreno MD Main Office [address] [place] [address] 3 05/05/2023 10:56:48 05/05/2023 13:20:12 Calcific aortic stenosis - bicuspid valve 967165266 Q23.0 Aneurysm o f ascending aorta 300157198 I71.21 Atrial fibrillation 4943 6004 I48.91 postoperat georgie 04/2023 Benign pro static hyperplasia 102345210 D29.1 [id number] Brent Moreno MD Main Office [address] [place] [address] 3 12/01/2023 12:55:12 12/01/2023 14:22:50 Cataract of right eye 229071585 H26.9 History of aortic valve replacement 8431477247 100 Z95.4 Benign pro static hyperplasia 513946433 D29.1 Pre-surger y evaluation 280291569 Z01.818 [id number] Brent Moreno MD Main Office [address] [place] [address] 3 12/07/2023 13:06:21 12/07/2023 14:55:53 Hemorrhoids 53927340 K64.9 Hematochezia 726367965 K 92.1 Health Concerns Section Related Observation LastModified by Organization Detai ls LastModified Time None Recorded Concern Status LastModified by Organization Details LastModified Time None Recorded Advance Directives Directive None Recorded Payers Encounter Date Sequence Insurance Name Policy Number Policy Larson Covered Member ID Larson Member ID Guarantor Name 12/02/2022 2 [employer] - PLAN F (MEDICARE SUPPLEMENT) [place] Vargasrt [id number] Zoraida Johnson 12/02/2022 1 [place] Varg[place]rt [id number] Zoraida Johnson 04/21/2023 2 [employer] - PLAN F (MEDICARE SUPPLEMENT) [place] Johnson [id number] Zoraida Johnson 04/21/2023 1 [place] Varg[employer]rt [id number] Zoraida Johnson 05/05/2023 2 [employer] - PLAN F (MEDICARE SUPPLEMENT) [place] Johnson [id number] Zoraida Johnson 05/05/2023 1 [place] Marks Shugert [id number] Zoraida Ayala Shugert 12/01/2023 2 [employer] - PLAN F (MEDICARE SUPPLEMENT) [place] Shugert [id number] Zoraida Ayala Shugert 12/01/2023 1 [place] Shugert [id number] Zoraida Ayala Shugert 12/07/2023 2 [employer] - PLAN F (MEDICARE SUPPLEMENT) [place] Shugert [id number] Zoraida Ayala Shugert 12/07/2023 1 [place] Shugert [id number] Zoraida Ayala Shugert Notes Date Note Type Note Provider Name and Address Organization Details Recorded Time 12/02/2022 text/html 11/27/2022 [facility] urgent care in [facility] acute bronchitis treated with Prednisone, Tessalon Perles, Z-rolando, ProAir.Still not wellPersistent cough is the main thing < Brent Moreno MD [address] [place], [address], [facility] 12/02/2022 17:33:51 04/21/2023 text/html Had replacement of bicuspid aorta and proximal aorta [facility]Developed new A fib.PT in progress. Will start cardiac rehab in 6 weeks.Started Furosemide and has already stopped it. Brent Moreno MD [address] [place], [address], [facility] 04/21/2023 11:47:59 05/05/2023 text/html follow up.Lately more dizzyLight headed and non rotatory..About 30 days postop.Expects to be released from surgical follow up at next visit.Still not driving.Sternal suture line still sore. Still is under lifting restrictions.Urinate s well. Dr. Lazcano is his urologist.Walks 26 minutes once or twice a day.. Brent Moreno MD [address] [place], [address], [facility] 05/05/2023 12:34:06 12/01/2023 text/html Is here for presurgical physical. He plans to have R cataract done at the end of the month. Dr. Grisel Bruce in [facility].Is 8 months out from his March 2020 3 aortic valve replacement and aortic aneurysm repair.Has own personal care assistant who comes to the house.Is generally feeling well and expanding what he is able to do physically. Brent Moreno MD [address] [place], [address], [facility] 12/01/2023 14:14:18 12/07/2023 text/html Bright red blood in stool last 5 days. Not painful On eliquis Had had more frequent mushy stools. He shows me a cell phone picture of bright red blood in his toilet bowl and on the seat. He was treated in the past by Dr.Lawrence Oro for hemorrhoids and had a colonoscopy by him in April 2018 that was negative for tumors but showed diverticulosis and hemorrhoids. Brent Moreno MD [address] [place], [address], [facility] 12/07/2023 14:53:09
[2024-08-07 15:57] LABS: Prostate Specific Antigen 1.4 ng/mL (< OR = 4.0)
== END 2024-08-07 14:30 | disposition home or self-care (01) ==
PROVIDERS: PCP Family Medicine
DX: Z12.5 Encounter for screening for malignant neoplasm of prostate (principal)
CPT/HCPCS: 36415; 84153; G0103